=== PATIENT | female | born 1975 | race Caucasian/White ===

== ENCOUNTER 2018-05-26 07:29 | Observation (INO) ==
[2018-05-26] MEDS ORDERED: Ondansetron 4 MG/2 ML VIAL IVP ONE ×2 (07:36→09:15)
[2018-05-26] MEDS ORDERED: 0.9 % Sodium Chloride 1,000 ML IVC ONE (07:36)
[2018-05-26] MEDS ORDERED: *HR* FentaNYL (PF) 100 MCG/2 ML VIAL IVP ONE (07:42)
--- NOTE | 2018-05-26 07:44 | Emergency Department Note ---
Disposition Clinical Impression: Hepatic steatosis Abdominal pain Qualifiers: Abdominal location: generalized Qualified Code(s): R10.84 - Generalized abdominal pain Nausea & vomiting Qualifiers: Vomiting type: unspecified Vomiting Intractability: intractable Qualified Code(s): R11.2 - Nausea with vomiting, unspecified Disposition: Admitted As Inpatient Condition: Fair Time of Disposition: 08:59 Abdominal Pain HPI - General Chief Complaint: ED Abdominal Pain Stated Complaint: ABD Pain,HAJI,Vomiting,Hypertension Time Seen by Provider: 05/26/18 07:35 Source: patient Mode of arrival: ambulatory Limitations: no limitations Nursing Notes Reviewed: Yes Vital Signs Reviewed: Yes - History of Present Illness HPI Narrative: 42-year-old female history of appendectomy and cholecystectomy, history of hypertension depression, arrives to the emergency department with vomiting 12 hours. Patient states she has been unable to keep anything down. Patient states she is complaining of epigastric as well as some diffuse abdominal discomfort that she states this comes and goes. The patient states this progressively worsened as well. The patient is unable to describe the quality of the pain. Patient denies any other complaints including vaginal discharge, melena, hematochezia, hematemesis, chest pain, difficulty breathing. She is afebrile. She is noted to be tachycardic on evaluation in the ED. Pain Scale: 9 - Related Data Home Medications Medication Instructions Recorded Confirmed Dulcolax 01/05/15 01/05/15 Effexor 01/05/15 01/05/15 Multivitamin 01/05/15 01/05/15 Protonix 01/05/15 01/05/15 Albuterol Sulfate 02/07/18 Doc-Q-Lace 02/07/18 Ferrous Sulfate 02/07/18 Meclizine HCl 02/07/18 Propranolol 02/07/18 Relpax 02/07/18 Vitamin B-12 02/07/18 Wellbutrin Xl 02/07/18 Previous Rx's Medication Instructions Recorded Fluticasone Propionate Nasal 2 spray NS DAILY #1 bottle 02/07/18 [Flonase] Ondansetron [Zofran] 8 mg PO Q8HR #12 tablet 02/07/18 Hyoscyamine SL [Levsin SL] 0.125 mg SL TID #10 tab.subl 05/26/18 Ondansetron ODT [Zofran ODT] 4 mg SL Q6HR #10 tab.rapdis 05/26/18 Allergies Allergy/AdvReac Type Severity Reaction Status Date / Time Penicillins [PCN] Allergy See Verified 02/07/18 12:47 Comments topiramate [From Topamax] Allergy Rash Verified 02/07/18 12:47 All systems ED: reviewed and negative except as stated. Constitutional: Denies: fever, chills, weakness ENT ED: Denies: dysphagia Cardiovascular: Denies: chest pain Respiratory: Denies: dyspnea Gastrointestinal: Reports: abdominal pain, nausea, vomiting. Denies: diarrhea, constipation, hematemesis, melena, hematochezia Genitourinary: Denies: urgency, dysuria Musculoskeletal: Denies: back pain, neck pain Integumentary: Denies: rash Neurological: Denies: headache Abdominal Pain PMH - Past Medical History Medical history: Reports: GERD, hypertension Female Surgical History: Reports: appendectomy, breast surgery, cholecystectomy, other [employer] history: Reports: no [employer] history, bilateral tubal ligation Psychiatric history: Reports: depression - Social History Smoking status: Never smoker Alcohol use: Reports: none Drug use: Reports: none Physical Exam - General Limitations: no limitations General appearance: alert, in no apparent distress, anxious - Head Head exam: atraumatic, normocephalic, normal inspection - Eye Eye exam: Present: normal appearance, PERRL, EOMI - ENT ENT exam: normal exam, normal oropharynx, mucous membranes moist - Neck Neck exam: Present: normal inspection, full ROM, trachea midline - Chest Chest inspection: Present: normal inspection, symmetric chest wall rise - Respiratory Respiratory exam: Present: normal lung sounds bilaterally - Cardiovascular Cardiovascular exam: Present: normal rhythm, tachycardia, normal heart sounds - Abdominal Exam Abdominal exam: Present: soft, tenderness (diffuse), scar. Absent: distention, guarding, rebound, rigidity, Newby's sign, Rovsing's sign, tenderness at McBurney's Point, hernia - Extremities Exam Extremities exam: Present: normal inspection, full ROM. Absent: tenderness, pedal edema - Neurological Exam Neurological exam: Present: alert, oriented X3 - Skin Skin exam: Present: warm, dry, intact, normal color Course - Reevaluation(s) Reevaluation #1: Patient states she is feeling a little bit better at this time. Patient's heart rate has come down into the 90s. She still states she is having crampy abdominal pain. Denies any other acute complaints. Time: 08:33 Vital Signs Temperature 97.5 F L 05/26/18 07:31 Pulse Rate 125 05/26/18 07:31 Respiratory Rate 20 05/26/18 07:31 Blood Pressure 129/88 05/26/18 07:31 O2 Sat by Pulse Oximetry 100 05/26/18 07:31 Temperature 97.5 F L 05/26/18 07:31 Pulse Rate 106 05/26/18 09:02 Respiratory Rate 18 05/26/18 09:02 Blood Pressure 129/88 05/26/18 09:02 O2 Sat by Pulse Oximetry 99 05/26/18 09:02 Oxygen Delivery Oxygen Delivery Room Air Abdominal Pain - MDM Narrative Medical decision making narrative: Patient's workup in the emergency department and streets no acute process. The patient does have some mild elevation in bilirubin which are in a nonobstructive pattern. Patient does have some transaminase elevation as well. Patient has a history of cholecystectomy and is noted to have hepatic steatosis on CT scan. Patient states she has been better at this time. She was given a liter of IV fluids her heart rate came down appropriately. Patient's reevaluation multiple times does demonstrate intermittently feeling better and then feeling worse. The patient was unable to tolerate by mouth intake and is received 2 different antiemetics. The patient had another episode of vomiting here in the emergency department. Given the intractable nausea and vomiting inability to take by mouth, we will admit the patient to the hospital at this time. Accepted by Dr. Boogie. - Lab Data Lab results reviewed: Yes I reviewed the patient's lab results. Result diagrams: 05/26/18 07:49 05/26/18 07:49 Lab Results 05/26/18 05/26/18 Range/Units 07:49 07:49 WBC 12.8 H (4.3-11.1) K/mcL RBC 5.06 H (3.82-4.97) M/mcL Hgb 15.8 H (11.5-15.4) g/dL Hct 46.2 H (35.3-44.9) % MCV 91.3 (83.0-100.0) fL MCH 31.2 (28.0-33.3) pg MCHC 34.2 (31.6-35.5) g/dL RDW 13.1 (11.5-14.5) % Plt Count 373 (140-400) K/mcL MPV 9.0 L (9.4-12.4) fL Immature Gran % 0.4 (0-4) % Seg Neutrophils % 78.6 % Lymphocytes % 15.3 % Monocytes % 4.8 % Eosinophils % 0.6 % Basophils % 0.3 % Neutrophils # 10.0 H (1.6-8.9) K/mcL Lymphocytes # 2.0 (0.6-4.6) K/mcL Monocytes # 0.6 (0.0-1.3) K/mcL Eosinophils # 0.1 (0.0-0.6) K/mcL Basophils # 0.0 (0.0-0.2) K/mcL Sodium 136 (136-145) mEq/L Potassium 3.5 (3.5-5.1) mEq/L Chloride 97 L (98-107) mEq/L Carbon Dioxide 29 (23-29) mEq/L BUN 16 (6-20) mg/dL Creatinine 0.92 (0.60-1.20) mg/dL Est GFR ( Amer) > 60 (> 60) Est GFR (Non-Af Amer) > 60 (> 60) BUN/Creatinine Ratio 17 (6-26) Glucose 114 H (70-105) mg/dL Calculated Osmolality 284 (280-300) Calcium 9.8 (8.6-10.3) mg/dL Total Bilirubin 1.5 H (0.3-1.0) mg/dL Direct Bilirubin 0.2 (0.0-0.2) mg/dL Indirect Bilirubin 1.3 H (0.0-1.2) mg/dL AST 59 H (13-39) Units/L ALT 77 H (7-52) Units/L Alkaline Phosphatase 159 H (34-104) Units/L Serum Total Protein 8.3 (6.4-8.9) g/dL Albumin 4.4 (3.5-5.7) g/dL Globulin 3.9 H (2.4-3.5) g/dL Albumin/Globulin Ratio 1.1 (1.1-2.2) Lipase 17 (11-82) Units/L - Radiology Data Radiology results reviewed: Yes I reviewed the patient's radiology results. Abdomen/Pelvis CT 05/26/18 07:42 IMPRESSION: No acute abdominal or pelvic abnormality. Hepatic steatosis. D/ / Silverio Piedra / Silverio Piedra Interpreting Provider: Silverio Piedra Attestation Statement - Attestation Attestation: I, Filemon Sam, examined this patient and my medical decision-making was reviewed with the CNC SET UP OPERATOR/PA/Advanced Practice Nurse/Resident Physician. I agree with the documented findings, disposition and treatment plan as described except to the extent set forth below. 42-year-old female presents emergency Department with concerns of nausea, vomiting, abdominal pain. Patient reports symptoms have been present for the past 12-24 hours. Laboratory evaluation showed mildly elevated liver enzymes and indirect bilirubin. Denies hematochezia or melena, hematemesis. CT of the abdomen and pelvis does show acute surgical abnormality however did show hepatic steatosis. Patient had persistent nausea and vomiting despite treatment with antiemetics. She will be admitted for continued care and evaluation.
[2018-05-26 08:01] LABS: Basophils % 0.3 %; Eosinophils # 0.1 K/mcL (0.0-0.6); Eosinophils % 0.6 %; Hematocrit 46.2 % (35.3-44.9); Hemoglobin 15.8 g/dL (11.5-15.4); Immature Granulocytes % 0.4 % (0-4); Lymphocytes % 15.3 %; Mean Corpuscular HGB Conc 34.2 g/dL (31.6-35.5); Mean Corpuscular Hemoglobin 31.2 pg (28.0-33.3); Mean Corpuscular Volume 91.3 fL (83.0-100.0); Monocytes # 0.6 K/mcL (0.0-1.3); Monocytes % 4.8 %; Platelet Count 373 K/mcL (140-400); Red Blood Count 5.06 M/mcL (3.82-4.97); Red Cell Distribution Width 13.1 % (11.5-14.5); Segmented Neutrophils % 78.6 %
[2018-05-26 08:19] LABS: Alanine Aminotransferase 77 Units/L (7-52); Albumin 4.4 g/dL (3.5-5.7); Albumin/Globulin Ratio 1.1 (1.1-2.2); Alkaline Phosphatase 159 Units/L (34-104); Aspartate Amino Transferase 59 Units/L (13-39); BUN/Creatinine Ratio 17 (6-26); Bilirubin,Direct 0.2 mg/dL (0.0-0.2); Bilirubin,Indirect 1.3 mg/dL (0.0-1.2); Bilirubin,Total 1.5 mg/dL (0.3-1.0); Blood Urea Nitrogen 16 mg/dL (6-20); Calcium 9.8 mg/dL (8.6-10.3); Carbon Dioxide 29 mEq/L (23-29); Chloride 97 mEq/L (98-107); Globulin 3.9 g/dL (2.4-3.5); Glucose 114 mg/dL (70-105); Lipase 17 Units/L (11-82); Osmolality,Calculated 284 (280-300); Potassium 3.5 mEq/L (3.5-5.1); Sodium 136 mEq/L (136-145); Total Protein 8.3 g/dL (6.4-8.9); eGFR For Non-African Americans > 60 (> 60)
[2018-05-26] MEDS ORDERED: Hyoscyamine SL 0.125 MG TAB.SUBL SL STA (08:40)
[2018-05-26] MEDS ORDERED: Promethazine 12.5 MG in 0.9 % Sodium Chloride 50 ML IVPB STA (10:22)
[2018-05-26] MEDS ORDERED: Naloxone 0.4 MG/ML INJ IVP PRN (15:33)
[2018-05-26] MEDS ORDERED: *HR* Promethazine 25 MG/ML VIAL IVP PRN (15:38)
[2018-05-26] MEDS ORDERED: *HR* OxyCODONE Immed Rel 5 MG TABLET PO PRN (15:42)
[2018-05-26] MEDS: Metoclopramide 10 MG/2 ML VIAL IVP SCH ×2 (16:08→23:32)
[2018-05-26] MEDS: 0.9 % Sodium Chloride w KCl 20 MEQ/1,000 ML MLS IVC SCH (16:10)
[2018-05-26] MEDS: Pantoprazole 40 MG VIAL IVP SCH (16:21)
--- NOTE | 2018-05-26 22:21 | Internal Med History&Physical ---
Date of Encounter: 05/26/18 Time of Encounter: 19:00 Internal Medicine - H&P: HPI Chief complaint: Nausea, vomiting and diarrhea Admitted From: Home Plans for Post Hospital Care: Home History of present illness: This is a 42-year-old woman who came to the emergency room today morning complaining of abdominal distention, nausea, vomiting and diarrheahappening in the last 12 hours before her arrival to ED. Her diarrhea started a few hours before she developed nausea and vomiting. She has had total of about 5-6 loose bowel movements. No blood or mucus was seen in the stool. She vomited several times. The last time it happened was today morning. Denies fever and chills. Denies chest pain and difficulty breathing, as well as coughing and wheezing. 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 PAST MEDICAL HX: She is treated for asthma hypertension, GERD and depression. She had cholecystectomy, appendectomy and bilateral breast reduction surgery in the past. PAST FAMILY HX: Positive for hypertension. PAST SOCIAL HX: She has no history of tobacco, alcohol or illicit drug use. REVIEW OF SYSTEMS: All 14 organ systems were reviewed by me with the patient. Positive and pertinent negative findings are listed above. The rest of organ systems is negative. PHYSICAL EXAM: Skin: Free of rash and discoloration. Eyes: Sclera is white. There is no discharge from eyes. ENMT: Oral/pharyngeal mucosa is normal in appearance. There is no discharge from nose or ears. Respiratory: Normal breath sounds with no crackles and wheezes bilaterally. CV: Heart is regular with no gallop or murmur. GI: Abdomen is mildly distended. It is soft and not tender. I can hear NABS. : There is no tenderness in patient's flanks bilaterally. Neuro exam: He has good strength in upper and lower extremities. He has normal eye movements. Psychiatric: He has normal affect. His thought process is appropriate to the situation. ADDITIONAL DATA: CT of abdomen/pelvis without IV/oral contrast shows hepatic steatosis. Otherwise, shows normal findings. CBC shows hemoglobin of 15.8 with WBC of 12.8 thousand and normal platelet count. BMP is normal. Hepatic panel shows total bilirubin of 1.5 with AST of 59, ALT of 77 and alk phos of 159. Lipase is 17. A/P: Acute gastroenteritis, likely viral. 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 I will keep her on clear liquids. She will get a few doses of scheduled IV Reglan to help her nausea/vomiting/abdominal distention. She can get when necessary IV Phenergan. She will get IV normal saline with potassium chloride. Hepatic steatosis. This is why she has mildly elevated liver function tests. This problem will be monitored in outpatient settings. Her other problems are mentioned by me in past medical history. They seem to be stable/under control. Past Med Surg Social Fam HX - Past Medical History Medical history: GERD, hypertension Psychiatric history: depression - Past Surgical History Surgical History: appendectomy, breast surgery, cholecystectomy Additional surgical history: adhesion removal - Social History Smoking Status: Never smoker Smokeless Tobacco Status: No Alcohol use: none Drug use: none Internal Medicine - H&P: Meds Dulcolax 01/05/15 [History] Effexor 01/05/15 [History] Multivitamin 01/05/15 [History] Protonix 01/05/15 [History] Albuterol Sulfate 02/07/18 [History] Doc-Q-Lace 02/07/18 [History] Ferrous Sulfate 02/07/18 [History] Fluticasone Propionate Nasal [Flonase] 2 spray NS DAILY #1 bottle 02/07/18 [Rx] Meclizine HCl 02/07/18 [History] Ondansetron [Zofran] 8 mg PO Q8HR #12 tablet 02/07/18 [Rx] Propranolol 02/07/18 [History] Relpax 02/07/18 [History] Vitamin B-12 02/07/18 [History] Wellbutrin Xl 02/07/18 [History] Hyoscyamine SL [Levsin SL] 0.125 mg SL TID #10 tab.subl 05/26/18 [Rx] Ondansetron ODT [Zofran ODT] 4 mg SL Q6HR #10 tab.rapdis 05/26/18 [Rx] Allergy/AdvReac Type Severity Reaction Status Date / Time Penicillins [PCN] Allergy See Verified 02/07/18 12:47 Comments topiramate [From Topamax] Allergy Rash Verified 02/07/18 12:47 - Constitutional Vitals: Temp Pulse Resp BP Pulse Ox 99.2 F 105 15 131/84 96 05/26/18 19:41 05/26/18 19:41 05/26/18 19:41 05/26/18 19:41 05/26/18 19:41 General appearance: Present: A&O X 3, no acute distress, answers questions appropriately Exam: xx Internal Med - H&P Results - Labs CBC & Chem 7: 05/26/18 07:49 05/26/18 07:49 Labs: Short CBC 05/26/18 Range/Units 07:49 WBC 12.8 H (4.3-11.1) K/mcL Hgb 15.8 H (11.5-15.4) g/dL Hct 46.2 H (35.3-44.9) % Plt Count 373 (140-400) K/mcL Neutrophils # 10.0 H (1.6-8.9) K/mcL BMP 05/26/18 07:49 Sodium 136 Potassium 3.5 Chloride 97 L Carbon Dioxide 29 BUN 16 Creatinine 0.92 Glucose 114 H Calcium 9.8 Liver Function 05/26/18 Range/Units 07:49 Total Bilirubin 1.5 H (0.3-1.0) mg/dL Direct Bilirubin 0.2 (0.0-0.2) mg/dL AST 59 H (13-39) Units/L ALT 77 H (7-52) Units/L Alkaline Phosphatase 159 H (34-104) Units/L Albumin 4.4 (3.5-5.7) g/dL - Impressions ITS Impressions Abdomen/Pelvis CT 05/26/18 07:42 IMPRESSION: No acute abdominal or pelvic abnormality. Hepatic steatosis. D/ / Silverio Piedra / Silverio Piedra Interpreting Provider: Silverio Piedra - Assessment and Plan (1) Acute gastroenteritis Current Visit: Yes Status: Acute (2) Hepatic steatosis Current Visit: Yes Status: Chronic (3) Asthma Current Visit: Yes Status: Chronic Qualifiers: Asthma severity: unspecified severity Asthma persistence: unspecified Asthma complication type: uncomplicated Qualified Code(s): J45.909 - Unspecified asthma, uncomplicated (4) HTN (hypertension) Current Visit: Yes Status: Chronic Qualifiers: Hypertension type: essential hypertension Qualified Code(s): I10 - Essential (primary) hypertension - Time Spent With Patient Total time spent is greater than 50% in coordination of care (as documented) at patient's floor/unit and/or counseling patient: 25 - 35 minutes
[2018-05-27] MEDS: 0.9 % Sodium Chloride w KCl 20 MEQ/1,000 ML MLS IVC SCH (02:05)
[2018-05-27] MEDS: Metoclopramide 10 MG/2 ML VIAL IVP SCH ×2 (05:20→12:09)
[2018-05-27 06:54] LABS: Basophils % 0.2 %; Eosinophils # 0.1 K/mcL (0.0-0.6); Hematocrit 37.6 % (35.3-44.9); Immature Granulocytes % 0.2 % (0-4); Lymphocytes # 3.8 K/mcL (0.6-4.6); Mean Corpuscular HGB Conc 33.5 g/dL (31.6-35.5); Mean Corpuscular Hemoglobin 31.3 pg (28.0-33.3); Mean Corpuscular Volume 93.3 fL (83.0-100.0); Mean Platelet Volume 9.1 fL (9.4-12.4); Monocytes # 0.8 K/mcL (0.0-1.3); Monocytes % 7.3 %; Neutrophils # 6.8 K/mcL (1.6-8.9); Platelet Count 287 K/mcL (140-400); Red Blood Count 4.03 M/mcL (3.82-4.97); Red Cell Distribution Width 13.3 % (11.5-14.5); Segmented Neutrophils % 58.3 %
[2018-05-27 07:13] LABS: Alanine Aminotransferase 61 Units/L (7-52); Albumin 3.5 g/dL (3.5-5.7); Albumin/Globulin Ratio 1.2 (1.1-2.2); Alkaline Phosphatase 131 Units/L (34-104); Aspartate Amino Transferase 36 Units/L (13-39); BUN/Creatinine Ratio 8 (6-26); Bilirubin,Direct 0.2 mg/dL (0.0-0.2); Bilirubin,Indirect 0.7 mg/dL (0.0-1.2); Bilirubin,Total 0.9 mg/dL (0.3-1.0); Blood Urea Nitrogen 7 mg/dL (6-20); Calcium 8.1 mg/dL (8.6-10.3); Carbon Dioxide 27 mEq/L (23-29); Chloride 105 mEq/L (98-107); Glucose 125 mg/dL (70-105); Osmolality,Calculated 285 (280-300); Potassium 4.2 mEq/L (3.5-5.1); Sodium 138 mEq/L (136-145); Total Protein 6.5 g/dL (6.4-8.9); eGFR For Non-African Americans > 60 (> 60)
[2018-05-27 07:22] LABS: Hemoglobin 12.6 g/dL (11.5-15.4)
[2018-05-27] MEDS: Pantoprazole 40 MG VIAL IVP SCH (09:20)
[2018-05-27 10:37] VITALS: BP 112/67
--- NOTE | 2018-05-27 10:41 | Discharge Summary ---
<Red Hussein - Last Filed: 05/27/18 11:21> - NOTES TO OUTPATIENT PROVIDER Notes to Outpatient Provider: Ms English was admitted for acute gastroenteritis, likely viral. She was treated with MIVF and nausea control. Her N/V/D quickly resolved, and prior to discharge she was noted to tolerate PO intake. Date of Encounter: 05/27/18 Time of Encounter: 09:00 - Discharge Diagnosis (1) Acute gastroenteritis Priority: Primary Status: Resolved Assessment and Plan: Patient presented for intractable nausea/vomiting/diarrhea 1 day She was admitted and started on intravenous fluids, antiemetics Her symptoms quickly resolved and she was tolerating by mouth intake Discharge on home medications (2) Hepatic steatosis Priority: Secondary Status: Chronic Assessment and Plan: Hepatic steatosis identified on abdominal CT Liver function tests were also mildly elevated Patient was counseled on risk of transition to cirrhosis Counseled on lifestyle modifications including diet, exercise (3) Asthma Priority: Secondary Status: Chronic Assessment and Plan: No acute exacerbation, discharged on home medications Qualifiers: Asthma severity: unspecified severity Asthma persistence: unspecified Asthma complication type: uncomplicated Qualified Code(s): J45.909 - Unspecified asthma, uncomplicated (4) HTN (hypertension) Priority: Secondary Status: Chronic Assessment and Plan: Blood pressure stable here, discharged on home medications Qualifiers: Hypertension type: essential hypertension Qualified Code(s): I10 - Essential (primary) hypertension Hospital course: Ms. English is a 42 year old female with a past medical history of asthma, hypertension, GERD, depression, cholecystectomy, appendectomy. She presented to the emergency department with 1 day of nausea/vomiting/diarrhea. Labs and vitals were collected, abdominal CT was performed. Mildly elevated liver func tion tests were noted in explained by hepatic steatosis determined on abdominal CT. She was admitted for IV fluids, nausea control, pain control. Her symptoms and clinical condition quickly improved and she was considered stable for discharge after tolerating by mouth intake. She will be discharged home medications and antiemetic. Discharge discussed with: patient, family - Time Spent with Patient Total time spent providing and/or coordinating discharge services: - Discharge Medications Prescriptions: New Ondansetron ODT [Zofran ODT] 4 mg SL Q6HR #10 tab.rapdis Hyoscyamine SL [Levsin SL] 0.125 mg SL TID #10 tab.subl Continue Protonix Multivitamin Effexor Dulcolax Wellbutrin Xl Vitamin B-12 Relpax Propranolol Meclizine HCl Ferrous Sulfate Doc-Q-Lace Albuterol Sulfate Ondansetron [Zofran] 8 mg PO Q8HR #12 tablet Fluticasone Propionate Nasal [Flonase] 2 spray NS DAILY #1 bottle Home Medications: Dulcolax 01/05/15 [History] Effexor 01/05/15 [History] Multivitamin 01/05/15 [History] Protonix 01/05/15 [History] Albuterol Sulfate 02/07/18 [History] Doc-Q-Lace 02/07/18 [History] Ferrous Sulfate 02/07/18 [History] Fluticasone Propionate Nasal [Flonase] 2 spray NS DAILY #1 bottle 02/07/18 [Rx] Meclizine HCl 02/07/18 [History] Ondansetron [Zofran] 8 mg PO Q8HR #12 tablet 02/07/18 [Rx] Propranolol 02/07/18 [History] Relpax 02/07/18 [History] Vitamin B-12 02/07/18 [History] Wellbutrin Xl 02/07/18 [History] Hyoscyamine SL [Levsin SL] 0.125 mg SL TID #10 tab.subl 05/26/18 [Rx] Ondansetron ODT [Zofran ODT] 4 mg SL Q6HR #10 tab.rapdis 05/26/18 [Rx] Allergies/Adverse Reactions: Allergy/AdvReac Type Severity Reaction Status Date / Time Penicillins [PCN] Allergy See Verified 02/07/18 12:47 Comments topiramate [From Topamax] Allergy Rash Verified 02/07/18 12:47 Date of admission: 05/26/18 13:42 Primary care physician: Lorna Manjarrez MD Discharging clinician: Red Hussein Anticipated date of discharge: 05/27/18 - Constitutional Vitals: Temp Pulse Resp BP Pulse Ox 98.5 F 96 16 112/67 98 05/27/18 10:36 05/27/18 10:36 05/27/18 10:36 05/27/18 10:36 05/27/18 10:36 General appearance: Present: A&O X 3, no acute distress, answers questions appropriately Exam: Alert and oriented 3, no acute distress, normal affect Mucous membranes moist, extraocular movements intact, no JVD Heart in regular rate and rhythm without murmur or gallop auscultated Lungs clear to auscultation without adventitial Abdomen soft and nontender with normal bowel sounds present Moves all extremities, no focal deficits noted Skin warm and dry, no rash or bruising noted - Patient Status Disposition: Home, Self-Care Condition: Good Functional capacity at discharge: independent ambulation Overall status at discharge: patient is back to baseline - Discharge Instructions Follow Up With: Lorna Manjarrez MD [Primary Care Provider] - (Web-requested, the office will call the patient to schedule a follow up appointment. ) Ana Lucero MD [Partnered Physician] - (Web-requested, the office will call the patient to schedule a follow up appointment. ) - Diet and Activity Activity: resume usual activities as tolerated Diet: low fat, low cholesterol <Ayesha Ibarra - Last Filed: 05/27/18 14:02> Date of Encounter: 05/27/18 - Discharge Diagnosis (1) Hepatic steatosis Status: Chronic (2) Acute gastroenteritis Status: Resolved (3) Asthma Status: Chronic Qualifiers: Asthma severity: unspecified severity Asthma persistence: unspecified Asthma complication type: uncomplicated Qualified Code(s): J45.909 - Unspecified asthma, uncomplicated (4) HTN (hypertension) Status: Chronic Qualifiers: Hypertension type: essential hypertension Qualified Code(s): I10 - Essential (primary) hypertension Hospital course: Ms. English is a 42 year old female - Time Spent with Patient Total time spent providing and/or coordinating discharge services: Date of admission: 05/26/18 13:42 Primary care physician: Lorna Manjarrez MD - Constitutional Vitals: Temp Pulse Resp BP Pulse Ox 98.5 F 96 16 112/67 98 05/27/18 10:36 05/27/18 10:36 05/27/18 10:36 05/27/18 10:36 05/27/18 10:36 - Attending Attestation I examined this patient and my medical decision-making was reviewed with the Resident Physician. I agree with the documented findings, disposition and treatment plan as described except to the extent set forth below.
--- NOTE | 2018-05-31 05:52 | Electrocardiograph Report ---
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
== END 2018-05-27 13:32 | disposition home or self-care (01) ==
LOC: 3ANU 07:29 → EMEROOARM 07:29 → SUATTDRO 13:42 → 3ANU 14:35
PROVIDERS: ADMIT Internal Medicine; ATTEND Student in an Organized Health Care Education/Training Program

== ENCOUNTER 2019-03-26 07:54 | Observation (INO) ==
[2019-03-26] MEDS ORDERED: *HR* FentaNYL (PF) 100 MCG/2 ML VIAL IVP ONE (08:26)
[2019-03-26] MEDS ORDERED: Ondansetron 4 MG/2 ML VIAL IVP ONE (08:39)
[2019-03-26 08:41] LABS: Basophils # 0.1 K/mcL (0.0-0.2); Basophils % 0.5 %; Eosinophils # 0.1 K/mcL (0.0-0.6); Eosinophils % 1.3 %; Hematocrit 41.1 % (35.3-44.9); Hemoglobin 14.1 g/dL (11.5-15.4); Immature Granulocytes % 0.3 % (0-4); Lymphocytes % 36.6 %; Mean Corpuscular HGB Conc 34.3 g/dL (31.6-35.5); Mean Corpuscular Hemoglobin 30.3 pg (28.0-33.3); Mean Corpuscular Volume 88.2 fL (83.0-100.0); Mean Platelet Volume 9.4 fL (9.4-12.4); Monocytes # 0.6 K/mcL (0.0-1.3); Monocytes % 5.5 %; Neutrophils # 6.1 K/mcL (1.6-8.9); Platelet Count 389 K/mcL (140-400); Red Blood Count 4.66 M/mcL (3.82-4.97); Red Cell Distribution Width 12.5 % (11.5-14.5); Segmented Neutrophils % 55.8 %; White Blood Count 10.9 K/mcL (4.3-11.1)
[2019-03-26 08:58] LABS: BUN/Creatinine Ratio 17 (6-26); Blood Urea Nitrogen 17 mg/dL (6-20); Calcium 9.1 mg/dL (8.6-10.3); Carbon Dioxide 25 mEq/L (23-29); Chloride 100 mEq/L (98-107); Glucose 113 mg/dL (70-105); Osmolality,Calculated 284 (280-300); Potassium 3.9 mEq/L (3.5-5.1); Sodium 136 mEq/L (136-145); eGFR For African Americans > 60 (> 60); eGFR For Non-African Americans 59 (> 60)
[2019-03-26 10:32] LABS: Appearance,CSF Clear (Clear)
[2019-03-26 10:34] LABS: Glucose,CSF 64 mg/dL (40-70); Total Protein,CSF 30 mg/dL (15-45)
[2019-03-26 10:39] LABS: Red Blood Cell,CSF < 0.002 M/mcL
[2019-03-26] MEDS ORDERED: *HR* HYDROmorphone (PF) 1 MG/ML SYRINGE IVP ONE (11:29)
[2019-03-26] MEDS ORDERED: ACYCLOVIR IVPB ONE (11:31)
[2019-03-26] MEDS ORDERED: D5 IVPB ONE (11:31)
[2019-03-26] MEDS ORDERED: WATER IVPB ONE (11:31)
[2019-03-26] MEDS ORDERED: *HR* Promethazine 25 MG/ML VIAL IVP PRN (13:07)
[2019-03-26] MEDS ORDERED: Naloxone 0.4 MG/ML INJ IVP PRN (13:07)
[2019-03-26] MEDS ORDERED: Acetaminophen 325 MG TABLET PO PRN (13:07)
[2019-03-26] MEDS ORDERED: 0.9 % Sodium Chloride 1,000 ML IVC SCH ×3 (13:45→23:59)
[2019-03-26] MEDS: *HR* HYDROcodone/Acet 5/325 mg TABLET PO PRN ×2 (15:33→22:41)
[2019-03-26] MEDS ORDERED: Ondansetron 4 MG/2 ML VIAL IVP PRN (15:34)
[2019-03-26] MEDS ORDERED: LOK IVPB SCH (16:00)
[2019-03-26] MEDS ORDERED: ACYCLOVIR IVPB SCH ×2 (16:00→20:00)
[2019-03-26] MEDS: *HR* Heparin 5,000 UNIT/ML VIAL SQ SCH (17:21)
[2019-03-26 17:56] LABS: Adenovirus Not Detected (Not Detect); Coronavirus 229E Not Detected (Not Detect); Coronavirus HKU1 Not Detected (Not Detect); Coronavirus NL63 Not Detected (Not Detect); Coronavirus OC43 Not Detected (Not Detect); Human Metapneumovirus Not Detected (Not Detect); Human Rhinovirus/Enterovirus Not Detected (Not Detect); Influenza A Subtype 2009 H1 Not Detected (Not Detect)
[2019-03-26 17:57] LABS: Bordetella Pertussis Not Detected (Not Detect); Chlamydophila pneumoniae Not Detected (Not Detect); Influenza B Not Detected (Not Detect); Mycoplasma pneumoniae Not Detected (Not Detect); Parainfluenza Virus 1 Not Detected (Not Detect); Parainfluenza Virus 2 Not Detected (Not Detect); Parainfluenza Virus 3 Not Detected (Not Detect); Parainfluenza Virus 4 Not Detected (Not Detect); Respiratory Syncytial Virus Not Detected (Not Detect)
[2019-03-26] MEDS ORDERED: WATER IVPB SCH (20:00)
[2019-03-26] MEDS ORDERED: D5 IVPB SCH (20:00)
[2019-03-26] MEDS: Acyclovir 550 MG in D5% in Water 250 ML IVPB SCH (21:10)
[2019-03-27] MEDS: Acyclovir 550 MG in D5% in Water 250 ML IVPB SCH (05:00)
[2019-03-27] MEDS: *HR* Heparin 5,000 UNIT/ML VIAL SQ SCH ×2 (05:03→17:34)
[2019-03-27 05:13] LABS: Basophils # 0.1 K/mcL (0.0-0.2); Basophils % 0.7 %; Eosinophils # 0.2 K/mcL (0.0-0.6); Hematocrit 37.3 % (35.3-44.9); Hemoglobin 12.8 g/dL (11.5-15.4); Immature Granulocytes % 0.2 % (0-4); Lymphocytes # 5.5 K/mcL (0.6-4.6); Lymphocytes % 56.9 %; Mean Corpuscular HGB Conc 34.3 g/dL (31.6-35.5); Mean Corpuscular Hemoglobin 29.9 pg (28.0-33.3); Mean Corpuscular Volume 87.1 fL (83.0-100.0); Mean Platelet Volume 9.4 fL (9.4-12.4); Monocytes # 0.5 K/mcL (0.0-1.3); Monocytes % 5.5 %; Neutrophils # 3.3 K/mcL (1.6-8.9); Platelet Count 323 K/mcL (140-400); Red Blood Count 4.28 M/mcL (3.82-4.97); Red Cell Distribution Width 12.5 % (11.5-14.5); Segmented Neutrophils % 34.7 %; White Blood Count 9.6 K/mcL (4.3-11.1)
[2019-03-27 05:37] LABS: BUN/Creatinine Ratio 12 (6-26); Blood Urea Nitrogen 11 mg/dL (6-20); Calcium 8.6 mg/dL (8.6-10.3); Carbon Dioxide 25 mEq/L (23-29); Chloride 105 mEq/L (98-107); Glucose 94 mg/dL (70-105); Osmolality,Calculated 285 (280-300); Potassium 3.9 mEq/L (3.5-5.1); Sodium 138 mEq/L (136-145); eGFR For African Americans > 60 (> 60); eGFR For Non-African Americans > 60 (> 60)
[2019-03-27] MEDS: *HR* HYDROcodone/Acet 5/325 mg TABLET PO PRN (10:45)
[2019-03-27] MEDS: BuPROPion XL (24 HR) 150 MG TABLET PO SCH ×2 (10:46→20:25)
[2019-03-27] MEDS ORDERED: ACYCLOVIR IVPB SCH (12:00)
[2019-03-27] MEDS ORDERED: WATER IVPB SCH (12:00)
[2019-03-27] MEDS ORDERED: D5 IVPB SCH (12:00)
[2019-03-27] MEDS ORDERED: MethylPREDNISolone 40 MG/ML VIAL IVP ONE ×2 (14:14→17:45)
[2019-03-27] MEDS ORDERED: Ketorolac 30 MG/ML VIAL IM PRN (14:14)
[2019-03-27] MEDS ORDERED: methylPREDNISolone 125 MG/2 ML VIAL IVP ONE (20:00)
[2019-03-27] MEDS ORDERED: *HR* Promethazine 25 MG/ML VIAL IVP ONE (20:20)
[2019-03-27] MEDS ORDERED: tiZANidine 4 MG TABLET PO SCH (21:00)
[2019-03-28] MEDS: *HR* Heparin 5,000 UNIT/ML VIAL SQ SCH (04:44)
[2019-03-28 06:53] VITALS: BP 117/63
[2019-03-28] MEDS: BuPROPion XL (24 HR) 150 MG TABLET PO SCH (08:58)
[2019-03-28] MEDS ORDERED: *HR* HYDROcodone/Acet 5/325 mg TABLET PO PRN (09:11)
[2019-03-28] MEDS ORDERED: Ketorolac 30 MG/ML VIAL IVP PRN (09:45)
[2019-03-28] MEDS ORDERED: Prochlorperazine 10 MG/2 ML VIAL IVP PRN (09:46)
[2019-03-28] MEDS ORDERED: MethylPREDNISolone 40 MG/ML VIAL IVP SCH (10:00)
[2019-03-28] MEDS ORDERED: MethylPREDNISolone 40 MG/ML VIAL IVP ONE (10:05)
[2019-03-28 15:13] LABS: HSV 1 Glycoprotein G IgG CSF 0.38 IV (<=0.89)
[2019-03-28 20:31] LABS: HSV Source CSF
== END 2019-03-28 10:36 | disposition home or self-care (01) ==
LOC: EMEROOARM 07:54 → 2ANU 07:54 → SUATTDRO 13:25 → 2ANU 14:00
PROVIDERS: ADMIT Internal Medicine; ATTEND Internal Medicine